=== PATIENT | female | born 1970 | race Caucasian/White ===

== ENCOUNTER 2018-06-28 20:43 | Observation (INO) | payer BC ==
[~2018-06-28] VITALS: Ht 157.5 cm; Wt 65.9 kg
--- NOTE | ~2018-06-28 | EC ---
PATIENT:CHUYITA KATZ DATE OF SERVICE: 06/28/18 SEX: F MEDICAL RECORD: [id number] DATE OF : 72 LOCATION:D.M2 D.211 AGE OF PATIENT: 47 ADMISSION DATE: 06/28/18 REFERRING PHYSICIAN: INTERPRETING PHYSICIAN: MIAN COMER MD ECHOCARDIOGRAM REPORT ECHO CHARGES 4 ECHO COMPLETE Date: 06/29/18 CLINICAL DIAGNOSIS: CP ECHOCARDIOGRAPHIC MEASUREMENTS (adult normal given) AC root (d.<3.7cm) 3.2 cm LV Septum d (<1.2 cm> 1.3 cm Valve Excursion 1.7 cm LV Septum (systole) 2.2 cm Left Atria (s.<4.0cm> 4.0 cm LVPW d(<1.2cm) 0.9 cm RV (d.<2.3cm) 2.6 cm LVPW (sytole) 1.1 cm LV diastole(<5.6CM) 4.5 cm MV E-F(>70mm/sec) cm LV systole 3.4 cm LVOT Diameter 1.5 cm MV exc.(>10mm) cm Est.ejection fraction (50-75%) % DOPPLER: LVIT cm/sec A 58 cm/sec E 66 cm/sec LA cm/sec RVSP 17.9 mmHg LVOT 78 cm/sec AOP1/2T m/s Asc. Ao 117 cm/sec RVOT 67 cm/sec RA cm/sec PA 86 cm/sec AV Gradient Peak 5.5 mmHg AV Mean 2.8 mmHg AV Area 1.1 cm MV Gradient Peak 3.4 mmHg MV Mean 1.3 mmHg MV Area cm COMMENTS: Behavioral Health Tech: Marcie CARDENAS Tool Storage Attendant: 1 Dr. Comer TAPE# PACS Pericardial Effusion N DATE OF SERVICE: 06/29/2018 FINDINGS: 1. Left ventricular chamber size is within normal limits. Left ventricular systolic function is normal. Overall ejection fraction is estimated at 65%. 2. Left atrium, right atrium, and right ventricle chamber sizes are within normal limit. 3. Valvular structures have normal structure and motion. 4. Doppler interrogation reveals no significant valvular insufficiency or stenosis. ECHOCARDIOGRAM REPORT [id number] CHUYITA KATZ 5. No evidence of pericardial effusion or left ventricular thrombus. TRANSINT:[id number] Voice Confirmation ID: [id number] DOCUMENT ID: [id number] MIAN COMER MD CC: [id number] DICTATION DATE: 06/29/18 1408 PROFESSIONAL APPLICATION DESIGNER: 06/29/18 181 ADM IN [facility] [address] [id number]
--- NOTE | ~2018-06-28 | HEMODYNAMI ---
PATIENT:CHUYITA KATZ MEDICAL RECORD: [id number] : 72 LOCATION:[facility] D.2114 ADMISSION DATE: 06/28/18 Generatedon:06/29/201814:39 Patient name: CHUYITA KATZ Patient #: [id number] SSN: DO B: 1970 Date of study: 06/29/2018 Page: Of Hemodynamic Procedure Report Patient Data Patient Demographics Procedure consent was obtained First Name: CHUYITA Gender: Female Last Name: STERLING : 1970 Middle Initial: MORENITA Age: 47 year(s) Patient #: [id number] Race: Unknown Additional ID: [id number] Contact details Address: [address] [place] [address] State: [place] City: [place] Zip code: [address] Past Medical History Allergies Allergen Reaction Date Comments Reported Other allergy 06/29/2018 hydrochlorothiazide Admission Admission Data Admission Date: 06/28/2018 Admission Time: 22:36 Room #: D.2114 Height (in.): 61.81 BSA: 1.67 (m2) Height (cm.): 157 BMI: 26.74 (kg/m2) Weight (lbs.): 145.29 Weight (kg.): 65.9 Lab Results Lab Result Date: 06/29/2018 Lab Result Time: 0:00 Biochemistry Name Units Result Min Max BUN mg/dl 15 --(--*-)-- 7 18 Creatinine mg/dl 0.9 --(-*--)-- 0.6 1.3 CBC Name Units Result Min Max Hemoglobin g/dl 13 -*(----)-- 13.5 17.5 Procedure Procedure Types Cath Procedure Diagnostic Procedure [facility] w/Coronaries FFR/IVUS Intra-Coronary IVUS Initial Sedation Charges Moderate Sedation up to 15 minutes PCI Procedure Coronary Stent Coronary Stent Initial Peripheral Cath Diagnostic Procedure Delivery Technician Peripheral Procedures Edmuj-Kzzamtd-Xbc-Off Procedure Description Procedure Date Procedure Date: 06/29/2018 Procedure Start Time: 14:15 Procedure End Time: 14:39 Procedure Staff Name Function Chan Comer MD Performing Physician Yary Chatman RT Monitor Kauhsik Serrato RN Nurse Moon Alexander RT Scrub Procedure Data Cath Procedure Fluoroscopy Diagnostic fluoroscopy Total fluoroscopy Time: 3.8 time: 3.8 min min Diagnostic fluoroscopy Total fluoroscopy dose: 516 dose: 516 mGy mGy Contrast Material Contrast Material Type Amount (ml) Isovue 300 117 Entry Location Entry Primary Successful Side Size Upsize Upsize Entry Closure Succes sful Closure Location (Fr) 1 (Fr) 2 (Fr) Remarks Device Remarks Femoral Right 5 Fr 6 Fr Exoseal artery Short Estimated blood loss: 10 ml Diagnostic catheters Device Type Used For End Catheter Placement MULTIPACK Pigtail 5 Fr Procedure catheter MULTIPACK JL 4.0 5Fr Procedure catheter MULTIPACK 3DRC 5Fr Procedure catheter Procedure Complications No complications Procedure Medications Medication Administration Route Dosage Oxygen etCO2 Nasal cannula 2 l/min Heparin Flush Bag added to field 2 bags (1000units/500ml NS) 0.9% NaCl I.V. 100 ml/hr Fentanyl I.V. 50 mcg Versed I.V. 1 mg Fentanyl I.V. 50 mcg Versed I.V. 1 mg Heparin Bolus I.V. 4000 units Plavix P.O. 75 mg Hemodynamics Rest BSA: 1.67 (m2) O2 Consumption: Estimated: 165.92 (ml/min) O2 Consumption indexed : Estimated:99.35 (ml/min/m) Heart Rate: 70 (bpm) Pressure Samples Time Site Value (mmHg) Purpose Heart Use Rate(bpm) 14:17 LV 111/9,13 Snapshot 70 Snapshots Pre Cath Intra NCS Post Cath Vital Signs Time Heart Resp SPO2 etCO2 NIBP Rhythm Pain Sedation Rate (ipm) (%) (mmHg) (mmHg) Status Level (bpm) 14:01:07 57 16 95 0 99/56(78) NSR 0 (11) 10(A) , No pain 14:05:13 58 17 95 0 99/57(74) NSR 0 (11) 10(A) , No pain 14:09:24 59 16 97 0 87/44(61) NSR 0 (11) 10(A) , No pain 14:13:26 53 17 98 38.6 100/57(74) NSR 0 (11) 10(A) , No pain 14:18:38 57 17 97 39.4 86/47(73) NSR 0 (11) 9(A) , No pain 14:22:41 55 17 97 38.7 89/51(66) NSR 0 (11) 9(A) , No pain 14:26:49 56 16 97 34.2 88/41(60) NSR 0 (11) 9(A) , No pain 14:30:53 53 17 98 35.6 101/53(80) NSR 0 (11) 9(A) , No pain 14:35:03 56 18 98 36.4 89/43(60) NSR 0 (11) 10(A) , No pain 14:39:10 57 14 98 29.7 83/44(57) NSR 0 (11) 10(A) , No pain Medications Time Medication Route Dose Verified Delivered Reason Notes Effectiveness by by 14:00:32 Oxygen etCO2 2 Chan Faulkner Per physician Nasal l/min Souleymane Serrato RN cannula 14:00:41 Heparin Flush added 2 Chan Faulkner used for Bag to bags Souleymane Serrato RN procedure (1000units/500ml field NS) 14:00:50 0.9% NaCl I.V. 100 Chan Faulkner Per physician ml/hr Souleymane Serrato RN 14:14:52 Fentanyl I.V. 50 Chan Howardy for sedation mcg Souleymane Serrato RN 14:14:59 Versed I.V. 1 mg Chan Faulkner for sedation Souleymane Serrato RN 14:18:11 Fentanyl I.V. 50 Chan Faulkner for sedation mcg Souleymane Serrato RN 14:18:16 Versed I.V. 1 mg Chan Howardy for sedation Souleymane Serrato RN 14:27:39 Heparin Bolus I.V. 4000 Chan Faulkner for units Souleymane Serrato RN anticoagulation 14:33:55 Plavix P.O. 75 mg Chan Faulkner for Souleymane Serrato RN antiplatelet therapy Procedure Log Time Note 13:38:22 Moon Alexander RT(R) sent for patient. Start room use. 13:40:47 Patient Height : 61.81 inches 13:40:53 Patient Weight : 145.29 lbs 13:41:45 Lab Result : BUN 15 mg/dl 13:41:45 Lab Result : Hemoglobin 13 g/dl 13:41:45 Lab Result : Creatinine 0.9 mg/dl 13:42:20 Diagnostic Cath status Elective 13:42:27 Time tracking: Call back (After hours or weekends) 13:42:33 Plan of Care:Hemodynamics will remain stable., Cardiac rhythm will remain stable., Comfort level will be maintained., Respiratory function will remain adequate., Patient/ family verbilizes understanding of procedure., Procedure tolerated without complication., Recovers from procedure without complications.. 13:51:33 Patient received from Med II to CCL 1 Alert and oriented. Tansferred to table in Supine position. 13:51:34 Warm blankets applied, and michelle hugger turned on for patient comfort. 13:51:35 Correct patient and procedure confirmed by team. 13:51:43 Signed procedure consent form obtained from patient. 13:51:46 ECG and BP/O2 sat monitors applied to patient. 13:51:52 H&P Date Dictated: 06/29/2018 Within 30 days and on chart.. 13:51:54 Pre-procedure instructions explained to patient. 13:51:57 Family in patients room. 13:51:59 Patient NPO since Midnight. 13:52:41 Patient allergic to Other allergyhydrochlorothiazide 13:52:50 Is the patient allergic to Iodine/contrast media? No. 13:52:52 Was the patient premedicated? Yes 14:00:01 Vital chart was started 14:00:32 Oxygen 2 l/min etCO2 Nasal cannula was administered by Kaushik Serrato RN; Per physician; 14:00:41 Heparin Flush Bag (1000units/500ml NS) 2 bags added to field was administered by Kaushik Serrato RN; used for procedure; 14:00:50 0.9% NaCl 100 ml/hr I.V. was administered by Kaushik Serrato RN; Per physician; 14:04:05 Is patient on blood thinner?Yes 14:04:09 ACC The patient was administered the following blood thiners within the last 24 hours: ACCPlavix 14:04:11 Patient diabetic? No. 14:04:16 Snore? No 14:04:17 Sleep apnea? No 14:04:23 Dentures? No ? 14:04:27 Patient pain scale 0/10 ?. 14:04:35 IV patent on arrival in left forearm with 0.9% NaCl at [facility]. 14:04:40 Lab results completed and on chart. 14:04:52 Bilateral groins area was prepped with chlora-prep and draped in sterile fashion 14:04:56 Alarms reviewed by R. N. 14:04:57 Sharps counted by scrub and verified by R.N. 14:04:58 Physician paged 14:10:45 Physician arrived 14:10:46 --------ALL STOP TIME OUT------ 14:10:47 Final Timeout: patient, procedure, and site verified with staff and physician. All members of the team are in agreement. 14:10:50 Bilateral groins site verified by team. 14:10:54 Physical assessment completed. ASA score P 2 - A patient with mild systemic disease as per Chan Comer MD. 14:10:58 Sedation plan: IV Moderate Sedation Medication:Versed, Fentanyl 14:14:52 Fentanyl 50 mcg I.V. was administered by Kaushik Serrato RN; for sedation; 14:14:59 Versed 1 mg I.V. was administered by Kaushik Serrato RN; for sedation; 14:15:08 Use device set Femoral Dx 14:15:11 Procedure started. 14:15:11 Full Disclosure recording started 14:15:23 Local anesthetic to right femoral artery with Lidocaine 2% by Chan Comer MD.INITIAL ACCESS ONLY 14:15:38 A 5 Fr sheath was inserted into the Right Femoral artery 14:15:42 ACIST Syringe (59170) opened to sterile field. 14:15:43 Bag Decanter () opened to sterile field. 14:15:44 Medline Cath Pack ([id number]) opened to sterile field. 14:15:45 DIAGNOSTIC WIRE .035 260cm J wire (921973) opened to sterile field. 14:15:46 ACIST Hand Control (45132) opened to sterile field. 14:15:46 ACIST Manifold (20529) opened to sterile field. 14:15:48 DIAGNOSTIC Multipack 5Fr catheter set (FV2415) opened to sterile field. 14:15:48 Tegaderm 4 x 4 (1626W) opened to sterile field. 14:15:50 SHEATH 5FR [place] (ART072) opened to sterile field. 14:16:20 A MULTIPACK Pigtail 5 Fr catheter was advanced over the wire and used for Procedure. 14:18:06 LV hemodynamics recorded. 14:18:11 Fentanyl 50 mcg I.V. was administered by Kaushik Serrato RN; for sedation; 14:18:16 Versed 1 mg I.V. was administered by Kaushik Serrato RN; for sedation; 14:18:17 EF : 60 % 14:18:35 LV angiography performed. 14:18:53 Abdominal Aortagram was performed. 14:18:56 Right leg runoff performed. 14:18:57 Left leg runoff performed. 14:19:05 Catheter removed. 14:21:19 A MULTIPACK JL 4.0 5Fr catheter was advanced over the wire and used for Procedure. 14:21:23 LCA angiography performed. 14:21:26 Catheter removed. 14:21:33 A MULTIPACK 3DRC 5Fr catheter was advanced over the wire and used for Procedure. 14:21:39 RCA angiography performed. 14:21:41 Catheter removed. 14:22:59 Proceeding to intervention. 14:23:07 Sheath upsized to a 6 Fr Short. 14:23:17 6 Fr XBLAD 3.5 guide catheter was inserted over the wire 14:23:23 choice pt ex wire advanced. 14:23:30 Wire advanced across lesion. 14:23:45 IVUS catheter advanced over wire. 14:25:51 IVUS catheter removed over wire. 14:27:39 Heparin Bolus 4000 units I.V. was administered by Kaushik Serrato RN; for anticoagulation; 14:32:24 Place stent Inflation Number: 1 A INTEGRITY RX 2.75 x 14 stent ([id number]) was prepped and advanced across the Mid LAD. The stent was deployed at 13 DONYA for 1:55 (min:sec). 14:32:43 Wire removed. 14:32:44 Guide catheter removed. 14:32:55 Sheath removed intact; hemostasis achieved with Exoseal to the Right Femoral artery. 14:33:08 EXOSEAL 6Fr (EX600) opened to sterile field. 14:33:10 SHEATH 6FR [place] (KZE129) opened to sterile field. 14:33:11 GUIDE 6FR XBLAD 3.5 catheter ([id number]) opened to sterile field. 14:33:12 INFLATOR Brian Alexandre (WN5410) opened to sterile field. 14:33:19 Procedure ended.(Physican Out) 14:33:34 Fluoroscopy time 03.80 minutes. 14:33:37 Fluoroscopy dose: 516 mGy 14:33:37 Flurop Dose total: 516 14:33:41 Contrast amount:Isovue 300 117ml. 14:33:43 Sharps counted by scrub and verified by R.N. 14:33:47 Insertion/operative site no bleeding no hematoma. 14:33:52 Post-op/insertion site Right Femoral artery dressed using a 4 x 4 and Tegaderm. 14:33:55 Plavix 75 mg P.O. was administered by Kaushik Serrato RN; for antiplatelet therapy; 14:36:05 Post right femoral artery:stable 14:36:07 Post Procedure Pulses reassessed and unchanged 14:36:10 Post-procedure physical assessment completed. ASA score P 2 - A patient with mild systemic disease as per Chan Comer MD. 14:36:27 Post procedure rhythm: sinus rhythm 14:36:30 Estimated blood loss: 10 ml 14:36:32 Post procedure instruction explained to patient.Patient verbalizes understanding. 14:38:10 Procedure type changed to Cath procedure, Diagnostic procedure, LHC, LHC w/Coronaries, FFR/IVUS, Intra-Coronary IVUS Initial, Sedation Charges, Moderate Sedation up to 15 minutes, PCI procedure, Coronary Stent, Coronary Stent Initial, Peripheral Cath Diagnostic Procedure, Delivery Technician Peripheral Procedures, Favrp-Xjzbckz-Uob-Off 14:38:11 Procedure and supply charges have been captured, reviewed, submitted and are correct. 14:39:02 Procedure Complication : No complications 14:39:06 Vital chart was stopped 14:39:08 See physician's report for complete and final results. 14:39:10 Report given to Pre/Post Procedure Room. 14:39:15 Patient transfered to Pre/Post Procedure Room with Stretcher. 14:39:18 Procedure ended. 14:39:18 Full Disclosure recording stopped 14:39:20 End room use (Document Last) 14:39:20 End room use (Document Last) 14:39:38 ACC-PCI Only Patient was given prescriptions, or instructed by Chan Comer MD to start/continue the following medications upon discharge: Plavix Intervention Summary Intervention Notes Time ActionType Lesion and Equipment Action# Pressure Duration Attributes Used 14:32:24 Place stent Mid LAD INTEGRITY RX 1 13 01:55 2.75 x 14 stent ([id number]) Device Usage Item Name Manufacture Quantity Catalog Hospital Part Current Minimal Lot# / Number Charge Number Stock Stock Serial# Code ACIST Acist 1 51830 732701 937671 368418 20 Syringe Medical (49151) Systems Inc Bag Decanter Microtek 1 268253 55620 026342 5 () Medical Inc. Medline Cath Medline 1 [id number] 622092 84981 613213 5 Pack ([id number]) DIAGNOSTIC [address] [place] 1 892225 815258 452372 707717 30 WIRE .035 260cm J wire (043701) ACIST Hand Acist 1 88167 223341 628373 468045 5 Control Medical (33831) Systems Inc ACIST Acist 1 44445 125971 035984 138803 5 Manifold Medical (93932) Systems Inc DIAGNOSTIC Cardinal 1 BV8375 310843 72128 788074 30 Multipack Health 5Fr catheter set (CP3252) Tegaderm 4 x 3M 1 1626W 628276 200381 190143 5 4 (1626W) SHEATH 5FR Terumo 1 CWS847 523385 966647 575194 5 [place] (EVI391) MULTIPACK Cardinal 1 926625 5 Pigtail 5 Fr Health catheter MULTIPACK JL Cardinal 1 405383 5 4.0 5Fr Health catheter MULTIPACK Cardinal 1 401648 5 3DRC 5Fr Health catheter INTEGRITY RX Medtronic 1 [id number] 058728 032525 195472 5 [id number] 2.75 x 14 stent ([id number]) EXOSEAL 6Fr Cardinal 1 EX600 792564 436750 905653 10 (EX600) Health SHEATH 6FR Terumo 1 WXI419 100605 413676 971197 40 [place] (PMQ663) GUIDE 6FR Cardinal 1 [id number] 275941 339682 050443 10 XBLAD 3.5 Health catheter ([id number]) INFLATOR TOPSEC 1 QF6686 626903 572702 745753 15 [facility] Coiney BasixComrena ([id number]) Signature Audit [place] Stage Time Signature Unsigned Intra-Procedure 06/29/2018 Yary Chatman 2:39:55 PM RT(R) Signatures Monitor : Yary Chatman Signature : RT Date : Time : [address] [place] [address]
[2018-06-28] MEDS ORDERED: LEXAPRO20 MG PO (20:54)
[2018-06-28] MEDS ORDERED: CLARITIN 10 MG10 MG PO (20:54)
[2018-06-28] MEDS ORDERED: ESTRACE1 MG PO (20:54)
[2018-06-28 21:15] LABS: BASOPHILS 0.3 % (0-2); EOSINOPHILS 1.1 % (0-7); HEMATOCRIT 38.9 % (36.0-48.0); IMMATURE GRANULOCYTES 0.1 % (0-5); LYMPHOCYTES 21.7 % (15-50); MCH 29.8 pg (26.0-34.0); MCHC 33.4 g/dL (31.0-37.0); MCV 89.2 fL (80.0-100.0); MEAN PLATELET VOLUME 10.2 fL (7.4-10.4); MONOCYTES 5.3 % (2-11); NEUTROPHILS 71.5 % (40-80); PLATELET COUNT 219 10x3/uL (130-400); RBC 4.36 10x6/uL (4.00-5.40); RDW 12.9 % (11.5-14.5); WBC 7.6 10x3/uL (4.8-10.8)
[2018-06-28 21:16] LABS: APPEARANCE CLEAR (CLEAR); BILIRUBIN NEGATIVE (NEGATIVE); COLOR STRAW (YELLOW); GLUCOSE NEGATIVE (NEGATIVE); KETONE NEGATIVE (NEGATIVE); NITRITE NEGATIVE (NEGATIVE); PROTEIN NEGATIVE (NEGATIVE); SPECIFIC GRAVITY 1.015 (1.005-1.020); UROBILINOGEN NORMAL (NORMAL)
[2018-06-28 21:30] LABS: ALBUMIN 2.8 g/dL (3.4-5.0); ALKALINE PHOSPHATASE 70 U/L (46-116); ALT (SGPT) 33 U/L (10-68); BILIRUBIN - TOTAL 0.23 mg/dL (0.2-1.3); CALC OSMOLALITY 284 mosm/kg (275-300); CALCIUM 8.4 mg/dL (8.5-10.1); CARBON DIOXIDE 26.6 mmol/L (21.0-32.0); CHLORIDE - SERUM 106 mmol/L (98-107); CREATININE - SERUM 0.9 mg/dL (0.6-1.3); GLUCOSE 111 mg/dL (74-106); POTASSIUM - SERUM 4.3 mmol/L (3.5-5.1); PROTEIN - SERUM 7.1 g/dL (6.4-8.2); SODIUM 142 mmol/L (136-145); UREA NITROGEN 15 mg/dL (7-18); eGFR NON AFRICAN AMERICAN 71 mL/min (90-120)
[2018-06-28 21:42] LABS: CREATINE KINASE 89 UL (21-215); PRO BNP 123 pg/mL (0-125); TROPONIN-I < 0.017 ng/mL (0.000-0.060)
[2018-06-28 22:01] VITALS: BP 139/69
[2018-06-28 22:11] VITALS: BP 131/71
[2018-06-28 22:15] VITALS: BP 131/69
[2018-06-28] MEDS ORDERED: B12 IM (23:06)
[2018-06-28] MEDS ORDERED: FISH OIL 1,0001 CA1 PO (23:08)
[2018-06-28] MEDS ORDERED: CENTRUM SILVER1 EAC3 PO (23:08)
[2018-06-28 23:50] VITALS: BP 118/67
[2018-06-29 00:43] VITALS: BP 118/67; BMI 26.6
[2018-06-29 03:19] LABS: CKMB 0.2 U/L (0.0-3.6); CREATINE KINASE 72 UL (21-215)
[2018-06-29 03:32] LABS: TROPONIN-I < 0.017 ng/mL (0.000-0.060)
[2018-06-29 03:45] VITALS: BP 104/60
[2018-06-29 08:13] VITALS: BP 107/56
[2018-06-29 08:34] VITALS: Ht 157.5 cm; Wt 65.9 kg
[2018-06-29 08:56] LABS: BASOPHILS 0.5 % (0-2); EOSINOPHILS 2.6 % (0-7); HEMATOCRIT 35.7 % (36.0-48.0); HEMOGLOBIN 11.5 g/dL (12-16); IMMATURE GRANULOCYTES 0.3 % (0-5); MCH 29.2 pg (26.0-34.0); MCHC 32.2 g/dL (31.0-37.0); MCV 90.6 fL (80.0-100.0); MEAN PLATELET VOLUME 10.7 fL (7.4-10.4); NEUTROPHILS 55.6 % (40-80); PLATELET COUNT 204 10x3/uL (130-400); RBC 3.94 10x6/uL (4.00-5.40); WBC 6.6 10x3/uL (4.8-10.8)
[2018-06-29 09:00] LABS: CALC OSMOLALITY 283 mosm/kg (275-300); CHLORIDE - SERUM 106 mmol/L (98-107); CREATININE - SERUM 0.8 mg/dL (0.6-1.3); GLUCOSE 90 mg/dL (74-106); POTASSIUM - SERUM 3.9 mmol/L (3.5-5.1); SODIUM 142 mmol/L (136-145); UREA NITROGEN 14 mg/dL (7-18); eGFR NON AFRICAN AMERICAN 82 mL/min (90-120)
[2018-06-29 09:38] LABS: CKMB 0.5 U/L (0.0-3.6); CREATINE KINASE 67 UL (21-215); TROPONIN-I < 0.017 ng/mL (0.000-0.060)
[2018-06-29 11:23] VITALS: BP 94/49
[2018-06-29] MEDS ORDERED: ASPIRIN81 MG PO (15:09)
[2018-06-29] MEDS ORDERED: PLAVIX75 MG PO (15:09)
--- NOTE | 2018-06-29 16:47 | MORECARE ---
CASE MANAGEMENT DISCHARGE SUMMARY PATIENT: CHUYITA KATZ HOPE UNIT: [id number] ADM DATE: 06/28/18 AGE: 47 : 72 SEX: F ROOM/BED: D.2114 AUTHOR: OLIVER CHOWDHURY PHYSICIAN: REFERRING PHYSICIAN: MIAN DAI MD DATE OF SERVICE: 06/29/18 Discharge Plan Patient Name: CHUYITA KATZ Facility: [facility]:[place] : 1970 Planned Disposition: Home Anticipated Discharge Date: 06/29/18 Discharge Date: Expected LOS: 1 Initial Reviewer: [email or web address] Initial Review Date: 06/28/2018 Generated: 06/29/18 5:47 pm Patient Name: CHUYITA KATZ Page 58044 at 1647 All edits/amendments must be made on the electronic document DICTATION DATE: 06/29/181646 DRUM OPERATOR: PERLITA 06/29/181646 RPT#: [id number] DC DATE: STATUS: ADM IN [facility] [address] [place] [address] END OF REPORT
== END 2018-06-29 18:50 | disposition home or self-care (01) ==
LOC: D.ER 20:43 → D.M2 22:36 → OBSVTIME 22:36 → D.M2 06-29 18:50
PROVIDERS: Family Medicine; ADMIT Internal Medicine Interventional Cardiology
DX: I25.10 Atherosclerotic heart disease of native coronary artery without angina pectoris (principal); M79.605 Pain in left leg; M79.604 Pain in right leg; F32.9 Major depressive disorder, single episode, unspecified

== ENCOUNTER 2018-07-03 22:44 | Observation (INO) | payer BC ==
[~2018-07-03] VITALS: Ht 157.5 cm; Wt 74.5 kg
[~2018-07-03 22:44] MED LIST: ASPIRIN81 MG PO; B12 IM; CENTRUM SILVER1 EAC3 PO; CLARITIN 10 MG10 MG PO; ESTRACE1 MG PO; FISH OIL 1,0001 CA1 PO; LEXAPRO20 MG PO; PLAVIX75 MG PO
[2018-07-03 23:38] VITALS: BP 100/54
[2018-07-03 23:39] LABS: APTT 25.6 SECONDS (22.8-39.4); PROTIME 12.7 SECONDS (11.6-15.0)
[2018-07-03 23:44] LABS: ALBUMIN 2.6 g/dL (3.4-5.0); ALKALINE PHOSPHATASE 70 U/L (46-116); ALT (SGPT) 32 U/L (10-68); BILIRUBIN - TOTAL 0.16 mg/dL (0.2-1.3); CALC OSMOLALITY 280 mosm/kg (275-300); CALCIUM 8.7 mg/dL (8.5-10.1); CARBON DIOXIDE 28.9 mmol/L (21.0-32.0); CHLORIDE - SERUM 105 mmol/L (98-107); CREATININE - SERUM 0.8 mg/dL (0.6-1.3); GLUCOSE 96 mg/dL (74-106); POTASSIUM - SERUM 3.6 mmol/L (3.5-5.1); PROTEIN - SERUM 6.9 g/dL (6.4-8.2); SODIUM 140 mmol/L (136-145); UREA NITROGEN 19 mg/dL (7-18); eGFR NON AFRICAN AMERICAN 82 mL/min (90-120)
[2018-07-03 23:46] LABS: BASOPHILS 0.4 % (0-2); EOSINOPHILS 1.8 % (0-7); HEMATOCRIT 38.4 % (36.0-48.0); HEMOGLOBIN 12.8 g/dL (12-16); IMMATURE GRANULOCYTES 0.3 % (0-5); LYMPHOCYTES 20.1 % (15-50); MCH 29.4 pg (26.0-34.0); MCHC 33.3 g/dL (31.0-37.0); MCV 88.3 fL (80.0-100.0); MEAN PLATELET VOLUME 10.6 fL (7.4-10.4); MONOCYTES 8.9 % (2-11); NEUTROPHILS 68.5 % (40-80); PLATELET COUNT 221 10x3/uL (130-400); RBC 4.35 10x6/uL (4.00-5.40); RDW 12.7 % (11.5-14.5); WBC 7.7 10x3/uL (4.8-10.8)
[2018-07-03 23:59] LABS: CKMB 0.9 U/L (0.0-3.6); CREATINE KINASE 75 UL (21-215); MAGNESIUM - SERUM 1.9 mg/dL (1.8-2.4); TROPONIN-I < 0.017 ng/mL (0.000-0.060)
[2018-07-04 01:53] LABS: APPEARANCE CLEAR (CLEAR); BILIRUBIN NEGATIVE (NEGATIVE); COLOR YELLOW (YELLOW); GLUCOSE NEGATIVE (NEGATIVE); KETONE NEGATIVE (NEGATIVE); NITRITE NEGATIVE (NEGATIVE); PROTEIN NEGATIVE (NEGATIVE); SPECIFIC GRAVITY 1.015 (1.005-1.020); UROBILINOGEN NORMAL (NORMAL)
[2018-07-04 01:59] LABS: UDS - AMPHET NEGATIVE QUAL (NEGATIVE); UDS - BARB NEGATIVE QUAL (NEGATIVE); UDS - BENZO POSITIVE QUAL (NEGATIVE); UDS - COCAINE NEGATIVE QUAL (NEGATIVE); UDS - OPIATE POSITIVE QUAL (NEGATIVE); UDS - PCP NEGATIVE QUAL (NEGATIVE); UDS - THC NEGATIVE QUAL (NEGATIVE)
[2018-07-04 04:30] VITALS: BP 101/60; BMI 26.6
[2018-07-04 07:00] VITALS: BP 94/50
[2018-07-04 10:53] LABS: PLT FUNCT.(P2Y12) PLAVIX 146 PRU (194-418)
[2018-07-04 11:00] VITALS: BP 113/63
[2018-07-04 14:02] VITALS: Ht 157.5 cm; Wt 74.5 kg
[2018-07-04 15:00] VITALS: BP 114/68
[2018-07-04 20:25] VITALS: BP 118/69
[2018-07-05 00:30] VITALS: BP 107/61
[2018-07-05 04:45] VITALS: BP 104/57
[2018-07-05 06:27] LABS: BASOPHILS 0.2 % (0-2); EOSINOPHILS 1.9 % (0-7); HEMATOCRIT 37.1 % (36.0-48.0); LYMPHOCYTES 23.8 % (15-50); MCH 29.3 pg (26.0-34.0); MCHC 32.3 g/dL (31.0-37.0); MEAN PLATELET VOLUME 10.4 fL (7.4-10.4); MONOCYTES 6.6 % (2-11); NEUTROPHILS 67.5 % (40-80); PLATELET COUNT 203 10x3/uL (130-400); RBC 4.09 10x6/uL (4.00-5.40); RDW 12.9 % (11.5-14.5); WBC 5.8 10x3/uL (4.8-10.8)
[2018-07-05 06:32] LABS: MCV 90.7 fL (80.0-100.0)
[2018-07-05 06:39] LABS: CALC OSMOLALITY 276 mosm/kg (275-300); CALCIUM 8.1 mg/dL (8.5-10.1); CARBON DIOXIDE 29.4 mmol/L (21.0-32.0); CHLORIDE - SERUM 103 mmol/L (98-107); CREATININE - SERUM 0.8 mg/dL (0.6-1.3); GLUCOSE 90 mg/dL (74-106); POTASSIUM - SERUM 3.8 mmol/L (3.5-5.1); SODIUM 139 mmol/L (136-145); UREA NITROGEN 10 mg/dL (7-18); eGFR NON AFRICAN AMERICAN 82 mL/min (90-120)
[2018-07-05 08:25] VITALS: BP 94/58
[2018-07-05 10:00] LABS: AMYLASE - SERUM 51 U/L (25-115); LIPASE 179 U/L (73-393)
[2018-07-05 11:38] VITALS: BP 90/44
[2018-07-05 16:28] VITALS: BP 96/40
[2018-07-05 21:20] VITALS: BP 122/71
[2018-07-06 00:57] VITALS: BP 115/70
[2018-07-06 05:53] VITALS: BP 106/58
[2018-07-06 07:00] LABS: BASOPHILS 0.2 % (0-2); EOSINOPHILS 2.6 % (0-7); HEMATOCRIT 36.5 % (36.0-48.0); HEMOGLOBIN 11.9 g/dL (12-16); IMMATURE GRANULOCYTES 0.2 % (0-5); MCH 29.3 pg (26.0-34.0); MCHC 32.6 g/dL (31.0-37.0); MCV 89.9 fL (80.0-100.0); MEAN PLATELET VOLUME 10.4 fL (7.4-10.4); MONOCYTES 9.8 % (2-11); NEUTROPHILS 58.2 % (40-80); PLATELET COUNT 216 10x3/uL (130-400); RBC 4.06 10x6/uL (4.00-5.40); RDW 12.6 % (11.5-14.5); WBC 5.8 10x3/uL (4.8-10.8)
[2018-07-06 07:08] LABS: INR 0.9 (0.85-1.17); PROTIME 11.7 SECONDS (11.6-15.0)
[2018-07-06 07:19] LABS: ALBUMIN 2.4 g/dL (3.4-5.0); ALKALINE PHOSPHATASE 93 U/L (46-116); ALT (SGPT) 57 U/L (10-68); BILIRUBIN - TOTAL 0.19 mg/dL (0.2-1.3); CALC OSMOLALITY 273 mosm/kg (275-300); CALCIUM 7.7 mg/dL (8.5-10.1); CARBON DIOXIDE 29.4 mmol/L (21.0-32.0); CHLORIDE - SERUM 103 mmol/L (98-107); CREATININE - SERUM 0.8 mg/dL (0.6-1.3); GLUCOSE 88 mg/dL (74-106); POTASSIUM - SERUM 3.8 mmol/L (3.5-5.1); PROTEIN - SERUM 6.6 g/dL (6.4-8.2); SODIUM 138 mmol/L (136-145); UREA NITROGEN 9 mg/dL (7-18); eGFR NON AFRICAN AMERICAN 82 mL/min (90-120)
[2018-07-06 08:41] VITALS: BP 111/52
[2018-07-06 11:43] VITALS: BP 90/47
[2018-07-06 16:43] VITALS: BP 100/54
[2018-07-06] MEDS ORDERED: LEVSIN/ANASP0.125 MG SL (19:33)
[2018-07-06] MEDS ORDERED: CARAFATE1 G PO (19:34)
[2018-07-06] MEDS ORDERED: SYNTHROID50 MCG PO (19:34)
[2018-07-06] MEDS ORDERED: PROTONIX40 MG PO (19:34)
[2018-07-06 20:56] VITALS: BP 103/68
[2018-07-07 02:02] VITALS: BP 96/50
[2018-07-07 06:06] LABS: BASOPHILS 0.4 % (0-2); EOSINOPHILS 3.9 % (0-7); HEMATOCRIT 35.8 % (36.0-48.0); HEMOGLOBIN 11.7 g/dL (12-16); IMMATURE GRANULOCYTES 0.2 % (0-5); LYMPHOCYTES 33.6 % (15-50); MCH 29.1 pg (26.0-34.0); MCHC 32.7 g/dL (31.0-37.0); MCV 89.1 fL (80.0-100.0); MEAN PLATELET VOLUME 10.4 fL (7.4-10.4); MONOCYTES 8.1 % (2-11); NEUTROPHILS 53.8 % (40-80); PLATELET COUNT 200 10x3/uL (130-400); RBC 4.02 10x6/uL (4.00-5.40); RDW 12.9 % (11.5-14.5); WBC 4.9 10x3/uL (4.8-10.8)
[2018-07-07 06:26] LABS: CALC OSMOLALITY 282 mosm/kg (275-300); CALCIUM 7.8 mg/dL (8.5-10.1); CARBON DIOXIDE 28.9 mmol/L (21.0-32.0); CHLORIDE - SERUM 104 mmol/L (98-107); CREATININE - SERUM 0.8 mg/dL (0.6-1.3); GLUCOSE 129 mg/dL (74-106); POTASSIUM - SERUM 3.6 mmol/L (3.5-5.1); SODIUM 142 mmol/L (136-145); UREA NITROGEN 7 mg/dL (7-18); eGFR NON AFRICAN AMERICAN 82 mL/min (90-120)
[2018-07-07 08:24] VITALS: BP 103/61
[2018-07-07 11:09] VITALS: BP 98/63
--- NOTE | 2018-07-08 09:08 | MORECARE ---
CASE MANAGEMENT DISCHARGE SUMMARY PATIENT: CHUYITA KATZ HOPE UNIT: [id number] ADM DATE: 07/04/18 AGE: 47 : 72 SEX: F ROOM/BED: D.4344 AUTHOR: OLIVER CHOWDHURY PHYSICIAN: REFERRING PHYSICIAN: RAFFI QUIÑONEZ MD DATE OF SERVICE: 07/08/18 Discharge Plan Patient Name: CHUYITA KATZ Facility: [facility]:[place] : 1970 Planned Disposition: Home Anticipated Discharge Date: 07/07/18 Discharge Date: 07/07/2018 Expected LOS: 3 Initial Reviewer: [email or web address] Initial Review Date: 07/08/2018 Generated: 07/08/18 10:08 am Patient Name: CHUYITA KATZ Page 54930 at 0908 All edits/amendments must be made on the electronic document DICTATION DATE: 07/08/18907 FIELD CROP FARM WORKER: DM 07/08/18907 RPT#: [id number] DC DATE:07/07/18 STATUS: DIS IN [facility] [address] [place] [address] END OF REPORT
== END 2018-07-07 12:40 | disposition home or self-care (01) ==
LOC: D.ER 22:44 → D.M2 07-04 02:48 → OBSVTIME 07-04 02:48 → D.M2 07-07 12:40
PROVIDERS: Family Medicine; Internal Medicine Cardiovascular Disease; Internal Medicine Gastroenterology; ADMIT Internal Medicine Nephrology
DX: K22.10 Ulcer of esophagus without bleeding (principal); K29.70 Gastritis, unspecified, without bleeding; Z86.73 Personal history of transient ischemic attack (TIA), and cerebral infarction without residual deficits; I25.110 Atherosclerotic heart disease of native coronary artery with unstable angina pectoris; N17.9 Acute kidney failure, unspecified; I10 Essential (primary) hypertension; Q24.5 Malformation of coronary vessels

== ENCOUNTER 2018-09-10 18:45 | Emergency (ER) | payer BC ==
[~2018-09-10] VITALS: Ht 157.5 cm; Wt 75.0 kg
[~2018-09-10 18:45] MED LIST changes: +CARAFATE1 G PO; +LEVSIN/ANASP0.125 MG SL; +PROTONIX40 MG PO; +SYNTHROID50 MCG PO
[2018-09-10 18:48] VITALS: Ht 157.5 cm; Wt 75.0 kg
[2018-09-10] MEDS ORDERED: BUPROPION HCL150 M1 PO (18:59)
[2018-09-10] MEDS ORDERED: CALTRATE+D3 PL1 EACH PO (19:00)
[2018-09-10] MEDS ORDERED: VITAMIN B-121000 MCG PO (19:01)
[2018-09-10] MEDS ORDERED: ULTRAM50 MG PO (19:02)
[2018-09-10] MEDS ORDERED: ZOFRAN4 MG PO (19:02)
[2018-09-10] MEDS ORDERED: COCONUT OIL (19:03)
[2018-09-10] MEDS ORDERED: OMEGA-3100 MG PO (19:03)
[2018-09-10 19:30] LABS: APPEARANCE CLOUDY (CLEAR); COLOR YELLOW (YELLOW); NITRITE NEGATIVE (NEGATIVE)
[2018-09-10 19:31] LABS: BILIRUBIN 1+ (NEGATIVE); GLUCOSE NEGATIVE (NEGATIVE); KETONE SMALL mg/dL (NEGATIVE); PROTEIN TRACE mg/dL (NEGATIVE); UROBILINOGEN NORMAL (NORMAL)
[2018-09-10 19:37] LABS: BACTERIA MANY /hpf (NONE SEEN); RED CELLS - URINE 0-5 /hpf (0-5); WHITE CELLS - URINE 0-5 /hpf (0-5)
[2018-09-10] MEDS ORDERED: HYDROCODON-ACE1 EAC2 PO (20:59)
[2018-09-10 21:19] VITALS: BP 136/78
== END 2018-09-10 21:20 | disposition home or self-care (01) ==
LOC: D.ER 18:45
PROVIDERS: Family Medicine
DX: M54.5 Low back pain (principal); I25.10 Atherosclerotic heart disease of native coronary artery without angina pectoris; K22.10 Ulcer of esophagus without bleeding

== ENCOUNTER → 2018-11-04 08:08 | Outpatient (CLI) | payer BC ==
[2018-09-10 18:48] VITALS: BMI 30.2
[~2018-11-04 08:08] MED LIST changes: +BUPROPION HCL150 M1 PO; +CALTRATE+D3 PL1 EACH PO; +COCONUT OIL; +HYDROCODON-ACE1 EAC2 PO; +OMEGA-3100 MG PO; +ULTRAM50 MG PO; +VITAMIN B-121000 MCG PO; +ZOFRAN4 MG PO
== END | disposition home or self-care (01) ==
LOC: D.RAD 08:08
PROVIDERS: ATTEND Internal Medicine Gastroenterology
DX: R13.10 Dysphagia, unspecified (principal); R10.13 Epigastric pain; R11.2 Nausea with vomiting, unspecified; R12 Heartburn; R19.7 Diarrhea, unspecified

== ENCOUNTER → 2018-11-06 07:37 | Outpatient (CLI) | payer BC ==
[2018-09-10 18:48] VITALS: BMI 30.2
== END | disposition home or self-care (01) ==
LOC: D.NM 07:37
PROVIDERS: ATTEND Internal Medicine Gastroenterology
DX: R13.10 Dysphagia, unspecified (principal); R10.13 Epigastric pain; R11.2 Nausea with vomiting, unspecified; R12 Heartburn; R19.7 Diarrhea, unspecified

== ENCOUNTER → 2019-03-10 08:32 | Outpatient (CLI) | payer BC ==
[2018-09-10 18:48] VITALS: BMI 30.2
--- NOTE | ~2019-03-10 | ST ---
PATIENT:CHUYITA KATZ MEDICAL RECORD: [id number] SEX: F LOCATION:[facility] ORDER #: ADMISSION DATE: 03/10/19 AGE OF PATIENT: 48 REFERRING PHYSICIAN: INTERPRETING PHYSICIAN: MIAN DAI MD DATE OF SERVICE: 03/10/2019 PROCEDURE: Nuclear stress test. INDICATION: Angina, coronary artery disease, shortness of breath, syncope. The patient was exercised on standard Alfred protocol for 9 minutes 30 seconds achieving greater than 85% max target heart rate response with 27 mCi of sestamibi injected at peak stress, 9 mCi were used previously for rest images. FINDINGS: SPECT imaging Cardiolite was used as myocardial perfusion agent. Gated SPECT reveals preserved ejection fraction at 70% with good wall motioning and thickening and brightening throughout all segments. SPECT imaging: Cardiology was used as myocardial perfusion agent. There is reversible ischemia in the mid anterior, apical anterior, and apical segments. The degree of reversibility is moderate. The amount of myocardium involved is mild to moderate. OVERALL IMPRESSION: 1. This is a mild to intermediate risk nuclear stress test, reversible ischemia anteriorly and apically. 2. Gated SPECT reveals preserved ejection fraction 70%. In this patient with ongoing symptomatology, the current scan does suggest the presence of hemodynamically significant coronary artery disease. TRANSINT:[id number] Voice Confirmation ID: [id number] DOCUMENT ID: [id number] cc: Dr. Jo Ann Ramos, [phone] MIAN DAI MD CC: DR JO ANN RAMOS [phone] DICTATION DATE: 03/16/19 0940 DOCUMENT IMAGE TECHNICIAN: 03/16/19 2329 DEP CLI 03/10/[id number] [place] [address]
[~2019-03-10 08:32] MED LIST changes: +FUROSEMIDE20 MG PO
== END | disposition home or self-care (01) ==
LOC: D.HCCARDIO 08:32
PROVIDERS: ATTEND Internal Medicine Interventional Cardiology
DX: I25.10 Atherosclerotic heart disease of native coronary artery without angina pectoris (principal)

== ENCOUNTER 2019-03-14 14:01 | Observation (INO) | payer BC ==
[~2019-03-14] VITALS: Ht 157.5 cm; Wt 61.4 kg
[2019-03-14] VITALS (9 sets, daily range): BP systolic 91–130; BP diastolic 49–79; Ht 157.5 cm; Wt 61.4 kg
--- NOTE | ~2019-03-14 | HEMODYNAMI ---
PATIENT:CHUYITA KATZ MEDICAL RECORD: [id number] : 72 LOCATION[facility] [address] [facility] [id number] ADMISSION DATE: 03/14/19 Generatedon:03/15/201910:17 Patient name: CHUYITA KATZ Patient #: [id number] SSN: [id number] : 1970 Date of study: 03/15/2019 Page: Of Hemodynamic Procedure Report Patient Data Patient Demographics Procedure consent was obtained First Name: CHUYITA Gender: Female Last Name: STERLING : 1970 [facility] Initial: MORENITA Age: 48 year(s) Patient #: [id number] Race: SSN: [id number] Additional ID: [id number] Contact details [address]: [address] [place] [address] State: [place] City: [place] Zip code: [address] Past Medical History Allergies Allergen Reaction Date Comments Reported Other allergy 06/29/2018 hydrochlorothiazide Other allergy 03/15/2019 HYDROCHLOROTHIAZIDE Admission Admission Data Admission Date: 03/14/2019 Admission Time: 14:01 Room #: D.2121 Insurance Payor: Private health insurance [facility] #: [id number] Height (in.): 62 BSA: 1.62 (m2) Height (cm.): 157.48 BMI: 24.69 (kg/m2) Weight (lbs.): 135 Weight (kg.): 61.23 Lab Results Lab Result Date: 03/15/2019 Lab Result Time: 0:00 Biochemistry Name Units Result Min Max BUN mg/dl 10 --(-*--)-- 7 18 Creatinine mg/dl 1 --(--*-)-- 0.6 1.3 eGFR ml/min 63 *-(----)-- 90 120 NONAFRICAN CBC Name Units Result Min Max Hematocrit % 37.5 *-(----)-- 42 54 Hemoglobin g/dl 12.7 -*(----)-- 13.5 17.5 Procedure Procedure Types Cath Procedure Diagnostic Procedure [facility] w/Coronaries Peripheral Cath Diagnostic Procedure Lead Injection Mold Technician Peripheral Procedures Four Vessel Arteriogram Procedure Description Procedure Date Procedure Date: 03/15/2019 Procedure Start Time: 10:04 Procedure End Time: 10:14 Procedure Staff Name Function Italo Menendez MD Performing Physician Moon Alexander RT Monitor Álvaro Little RT Scrub Kelli Seals RN Nurse Sean Ruby RT Big Data Admin Procedure Data Cath Procedure Fluoroscopy Diagnostic fluoroscopy Total fluoroscopy Time: 2.7 time: 2.7 min min Diagnostic fluoroscopy Total fluoroscopy dose: 280 dose: 280 mGy mGy Contrast Material Contrast Material Type Amount (ml) Isovue 300 98 Entry Location Entry Primary Successful Side Size Upsize Upsize Entry Closure Succes sful Closure Location (Fr) 1 (Fr) 2 (Fr) Remarks Device Remarks Femoral Right 5 Fr Exoseal artery Estimated blood loss: 5 ml Diagnostic catheters Device Type Used For End Catheter Placement MULTIPACK JL 4.0 5Fr Procedure catheter MULTIPACK 3DRC 5Fr Procedure catheter MULTIPACK Pigtail 5 Fr Procedure catheter Procedure Complications No complications Procedure Medications Medication Administration Route Dosage Oxygen etCO2 Nasal cannula 2 l/min Lidocaine 2% added to field 20 Heparin Flush Bag added to field 2 bags (1000units/500ml NS) 0.9% NaCl I.V. 100 ml/hr Versed I.V. 1 mg Fentanyl I.V. 50 mcg Plavix P.O. 75 mg Versed I.V. 1 mg Fentanyl I.V. 50 mcg Hemodynamics Rest BSA: 1.62 (m2) HGB: 12.7 (g/dl) O2 Consumption: Estimated: 150.61 (ml/min) O2 Co nsumption indexed: Estimated:92.97 (ml/min/m) Heart Rate: 54 (bpm) Pressure Samples Time Site Value (mmHg) Purpose Heart Use Rate(bpm) 10:11 LV 121/11,18 Snapshot 49 10:12 AO 114/51(85) Pullback 50 10:12 LV 115/18,24 Pullback 50 Gradients Valve Time Site 1 Site 2 Mean SEP/DFP Peak To Heart Use (mmHg) (sec/min) Peak Rate (mmHg) (bpm) Aortic 10:12 LV AO 2 13 1 50 115/18,24 114/51(85) Calculations Valve P-P Mean Valve Index Valve Source Name Gradient Area Flow (cm2) Aortic 1 2 1 2 Snapshots Pre Cath Intra NCS Post Cath Vital Signs Time Heart Resp SPO2 etCO2 NIBP Rhythm Pain Sedation Rate (ipm) (%) (mmHg) (mmHg) Status Level (bpm) 9:43:45 48 18 100 0 108/61(0) SB 0 (11) 10(A) , No pain 9:59:05 49 19 100 40.6 104/58(72) SB 0 (11) 10(A) , No pain 10:03:17 48 19 100 37.6 114/60(75) SB 0 (11) 9(A) , No pain 10:08:22 49 19 100 1.5 109/57(77) SB 0 (11) 9(A) , No pain 10:12:38 51 18 100 14.3 114/57(84) SB 0 (11) 10(A) , No pain 10:16:58 50 7 100 40.6 103/51(75) SB 0 (11) 10(A) , No pain Medications Time Medication Route Dose Verified Delivered Reason Notes E ffectiveness by by 9:55:53 Plavix P.O. 75 mg Italo Buffie for [facility] Mo Seals RN antiplatelet MD therapy 9:57:51 Oxygen etCO2 2 Itaol Buffie used for Nasal l/min [facility] Mo Seals RN procedure cannula 9:57:58 Lidocaine 2% added 20ml Italo Italo for local to vial [facility] anesthetic field MD RUIZ 9:58:03 Heparin Flush added 2 Italo Italo used for Bag to bags [facility] procedure (1000units/500ml field MD RUIZ NS) 9:58:13 0.9% NaCl I.V. 100 Italo Buffie Per ml/hr [facility] Mo Seals RN physician 10:00:34 Versed I.V. 1 mg Italo Buffie for sedation St Mo Seals RN, MD 10:00:41 Fentanyl I.V. 50 Italo Buffie for sedation mcg [facility] Mo Seals RN, MD 10:08:09 Versed I.V. 1 mg Italo Buffie for sedation St Mo Seals RN, MD 10:08:13 Fentanyl I.V. 50 Italo Rolandoie for sedation mcg [facility] Mo Seals RN, MD Procedure Log Time Note 9:25:29 Sean Ruby RT(R) sent for patient. Start room use. 9:25:31 Procedure Status Urgent Heart Cath (IP). 9:25:32 Time tracking: Regular hours (M-F 7:00 - 5:00) 9:25:35 Plan of Care:Hemodynamics will remain stable., Cardiac rhythm will remain stable., Comfort level will be maintained., Respiratory function will remain adequate., Patient/ family verbilizes understanding of procedure., Procedure tolerated without complication., Recovers from procedure without complications.. 9:25:37 Signed procedure consent form obtained from patient. 9::42 Insurance Payor : Private health insurance 9:27:12 Patient Weight : 135 lbs 9:27:15 Patient Height : 62 inches 9:28:12 Lab Result : BUN 10 mg/dl 9::12 Lab Result : Hemoglobin 12.7 g/dl 9::12 Lab Result : Hematocrit 37.5 % 9::12 Lab Result : Creatinine 1 mg/dl 9:28:12 Lab Result : eGFR NONAFRICAN 63 ml/min 9:28:19 PCI Cath Status : Urgent 9:28:20 Diagnostic Cath Status : Urgent 9:29:08 Patient allergic to Other allergyHYDROCHLOROTHIAZIDE 9:42:53 Patient received from Med II to CCL 1 Alert and oriented. Tansferred to table in Supine position. 9:42:54 Warm blankets applied, and michelle hugger turned on for patient comfort. 9:42:54 Correct patient and procedure confirmed by team. 9:42:54 ECG and BP/O2 sat monitors applied to patient. 9:43:48 Vital chart was stopped 9:51:00 Baseline sample Acquired. 9:51:04 Rhythm: sinus bradycardia 9:51:05 Full Disclosure recording started 9:51:06 Pre-procedure instructions explained to patient. 9:51:06 Pre-op teaching completed and patient verbalized understanding. 9:51:09 Family in patients room. 9:51:10 Patient NPO since Midnight. 9:51:12 Is patient on blood thinner?Yes 9:51:14 ACC The patient was administered the following blood thiners within the last 24 hours: ACCPlavix 9:51:15 Patient diabetic? No. 9:51:17 Patient not . Patient has had hysterectomy. 9:51:19 Previous problem with sedation/anesthesia? No ? 9:51:20 Snore? Yes 9:51:21 Sleep apnea? No 9:51:22 Deviated septum? No 9:51:23 Opens mouth fully? Yes 9:51:24 Sticks out tongue? Yes 9:51:26 Airway obstruction? No ? 9:51:28 Dentures? No ? 9:51:30 Pre procedure: right dorsailis pedis pulse 1+ Palpable, but thready & weak; easily obliterated 9:51:33 Patient pain scale 0/10 ?. 9:53:34 IV patent on arrival in left forearm with 0.9% NaCl at [facility]. 9:53:37 Lab results completed and on chart. 9:53:44 Right groin area was prepped with chlora-prep and draped in sterile fashion 9:53:45 Alarms reviewed by R. N. 9:53:46 Sharps counted by scrub and verified by R.N. 9:53:58 Use device set Femoral Dx 9:53:59 ACIST Syringe (45814) opened to sterile field. 9:53:59 Bag Decanter (2002S) opened to sterile field. 9:54:00 ACIST Hand Control (78210) opened to sterile field. 9:54:00 ACIST Manifold (57652) opened to sterile field. 9:54:02 Tegaderm 4 x 4 (1626W) opened to sterile field. 9:54:03 Medline Cath Pack ([id number]) opened to sterile field. 9:54:04 DIAGNOSTIC Multipack 5Fr catheter set ([id number]) opened to sterile field. 9:54:05 SHEATH 5FR Scarsdale ([id number]) opened to sterile field. 9:54:06 EMERALD Guide Wire (474-829) opened to sterile field. 9:55:53 Plavix 75 mg P.O. was administered by Kelli Seals RN; for antiplatelet therapy; 9:57:39 Vital chart was started 9:57:43 Procedure type changed to Cath procedure, Diagnostic procedure, LHC, LHC w/Coronaries, Peripheral Cath Diagnostic Procedure, Lead Injection Mold Technician Peripheral Procedures, Four Vessel Arteriogram 9:57:51 Oxygen 2 l/min etCO2 Nasal cannula was administered by Kelli Seals RN; used for procedure; 9:57:58 Lidocaine 2% 20ml vial added to field was administered by Italo Menendez MD; for local anesthetic; 9:58:03 Heparin Flush Bag (1000units/500ml NS) 2 bags added to field was administered by Italo Menendez MD; used for procedure; 9:58:13 0.9% NaCl 100 ml/hr I.V. was administered by Kelli Seals RN; Per physician; 9:58:44 --------ALL STOP TIME OUT------ 9:58:45 Final Timeout: patient, procedure, and site verified with staff and physician. All members of the team are in agreement. 9:58:46 Right groin site verified by team. 9:58:50 Fire Safety Assessment: A--An alcohol-based skin anteseptic being used preoperatively., C--Open oxygen or nitrous oxide is being used., D--An ESU, laser, or fiber-optic light is being used. 9:58:52 Physical assessment completed. ASA score P 2 - A patient with mild systemic disease as per Italo Menendez MD. 9:58:56 2) 60-89 Mildly reduced kidney function, and other findings (as for stage 1) point to kidney disease. 9:59:00 Maximum allowable contrast dose (3.7 X eGFR X 0.75)175 ml. 9:59:03 Sedation plan: IV Moderate Sedation Medication:Versed, Fentanyl 10:00:17 Zero performed for pressure channel P1 10:00:34 Versed 1 mg I.V. was administered by Kelli Seals RN; for sedation; 10:00:41 Fentanyl 50 mcg I.V. was administered by Kelli Seals RN; for sedation; 10:04:02 Zero performed for pressure channel P1 10:04:09 Procedure started. 10:04:13 Local anesthetic to right femoral artery with Lidocaine 2% by Italo Menendez MD.INITIAL ACCESS ONLY 10:04:54 A 5 Fr sheath was inserted into the Right Femoral artery 10:05:11 A MULTIPACK JL 4.0 5Fr catheter was advanced over the wire and used for Procedure. 10:06:58 LCA angiography performed. 10:07:00 Catheter removed. 10:07:11 A MULTIPACK 3DRC 5Fr catheter was advanced over the wire and used for Procedure. 10:08:09 Versed 1 mg I.V. was administered by Kelli Seals RN; for sedation; 10:08:10 RCA angiography performed. 10:08:12 ACCDominant side:Left 10:08:13 Fentanyl 50 mcg I.V. was administered by Kelli Seals RN; for sedation; 10:09:29 Right carotid angiography performed. 10:10:45 Left carotid angiography performed. 10:10:51 Catheter removed. 10:10:59 A MULTIPACK Pigtail 5 Fr catheter was advanced over the wire and used for Procedure. 10:11:32 LV gram done using PACE 10:11:35 Injector settings: Ml/sec: 10, Volume: 20, 10:11:54 LV hemodynamics recorded. 10:12:12 EF : 55 % 10:12:15 Catheter removed. 10:12:16 EXOSEAL 5Fr (EX500) opened to sterile field. 10:12:46 Sheath removed intact; hemostasis achieved with Exoseal to the Right Femoral artery. 10:13:05 Procedure ended.(Physican Out) 10:13:15 Fluoroscopy time 02.70 minutes. 10:13:19 Fluoroscopy dose: 280 mGy 10:13:19 Flurop Dose total: 280 10:13:24 Dose Area Product 18238 mGy/cm. 10:13:40 Contrast amount:Isovue 300 98ml. 10:13:42 Maximum allowable dose exceeded? No. 10:13:43 Sharps counted by scrub and verified by R.N. 10:13:46 Post-op/insertion site Right Femoral artery dressed using a 4 x 4 and Tegaderm. 10:13:49 Post-procedure physical assessment completed. ASA score P 2 - A patient with mild systemic disease as per Italo Menendez MD. 10:13:52 Post procedure rhythm: sinus bradycardia 10:13:54 Estimated blood loss: 5 ml 10:14:15 Post procedure instruction explained to patient.Patient verbalizes understanding. 10:14:15 Patient needs reinforcement of post procedure teaching. 10:14:34 Procedure and supply charges have been captured, reviewed, submitted and are correct. 10:14:38 Procedure Complication : No complications 10:14:40 See physician's report for complete and final results. 10:14:42 Report given to Pre/Post Procedure Room. 10:14:44 Patient transfered to Pre/Post Procedure Room with Bed. 10:14:47 Procedure ended. 10:14:47 Full Disclosure recording stopped 10:14:51 End room use (Document Last) 10:17:43 Vital chart was stopped Device Usage Item Name Manufacture Quantity Catalog Hospital Part Current Minimal L ot# / Number Charge Number Stock Stock Serial# Code ACSVEN Acist 1 86002 680432 137223 [id number] 20 Syringe Medical (33972) Systems Inc Bag Microtek 1 2001S 323638 95746 616589 5 Decanter Medical Inc. () ACIST Hand Acist 1 29831 217945 464913 313573 5 Control Medical (76845) Systems Inc ACIST Acist 1 04715 208654 227603 040080 5 Manifold Medical (22811) Systems Inc Tegaderm 4 3M 1 1626W 875831 933009 755835 5 x 4 (1626W) Medline Medline 1 [id number] 569333 97635 264183 5 Cath Pack ([id number]) DIAGNOSTIC Cardinal 1 NV1645 216663 89206 041024 30 Multipack Health 5Fr catheter set (ZB9843) SHEATH 5FR Terumo 1 MLS766 967130 469626 180476 5 Scarsdale (TRE237) EMERALD Cardinal 1 502-455 583978 420722 310847 5 Guide Wire Health (502455) MULTIPACK Cardinal 1 329529 5 JL 4.0 5Fr Health catheter MULTIPACK Cardinal 1 914032 5 3DRC 5Fr Health catheter MULTIPACK Cardinal 1 119313 5 Pigtail 5 Health Fr catheter EXOSEAL 5Fr Cardinal 1 EX500 819828 188803 314707 10 (EX500) Health Signature Audit [place] Stage Time Signature Unsigned Intra-Procedure 03/15/2019 Moon Alexander 10:17:40 AM RT(R) Signatures Performing Physician : Signature : Italo Menendez MD Date : Time : Monitor : Moon Alexander Signature : RT Date : Time : Nurse : Kelli Seals RN Signature : Date : Time : [id number] [place] [address]
[~2019-03-14 14:01] MED LIST changes: -FUROSEMIDE20 MG PO
[2019-03-14 14:26] LABS: BASOPHILS 0.3 % (0-2); EOSINOPHILS 2.2 % (0-7); HEMATOCRIT 37.5 % (36.0-48.0); HEMOGLOBIN 12.7 g/dL (12-16); IMMATURE GRANULOCYTES 0.3 % (0-5); LYMPHOCYTES 21.1 % (15-50); MCH 29.7 pg (26.0-34.0); MCHC 33.9 g/dL (31.0-37.0); MCV 87.6 fL (80.0-100.0); MEAN PLATELET VOLUME 10.2 fL (7.4-10.4); MONOCYTES 8.7 % (2-11); NEUTROPHILS 67.4 % (40-80); RBC 4.28 10x6/uL (4.00-5.40); RDW 13.2 % (11.5-14.5); WBC 7.2 10x3/uL (4.8-10.8)
[2019-03-14 14:37] LABS: PLATELET COUNT 266 10x3/uL (130-400)
--- NOTE | 2019-03-14 14:38 | NUR ---
NTG TAB X 3 GIVEN. NO RELIEF NOTED.
[2019-03-14 14:56] LABS: ALBUMIN 2.7 g/dL (3.4-5.0); ALKALINE PHOSPHATASE 68 U/L (46-116); ALT (SGPT) 23 U/L (10-68); BILIRUBIN - TOTAL 0.21 mg/dL (0.2-1.3); CALC OSMOLALITY 277 mosm/kg (275-300); CALCIUM 8.6 mg/dL (8.5-10.1); CARBON DIOXIDE 32.5 mmol/L (21.0-32.0); CHLORIDE - SERUM 105 mmol/L (98-107); GLUCOSE 107 mg/dL (74-106); POTASSIUM - SERUM 4.3 mmol/L (3.5-5.1); SODIUM 140 mmol/L (136-145); UREA NITROGEN 10 mg/dL (7-18); eGFR NON AFRICAN AMERICAN 63 mL/min (90-120)
[2019-03-14 15:14] LABS: APTT 24.6 SECONDS (22.8-39.4); INR 0.95 (0.85-1.17); PROTIME 12.2 SECONDS (11.6-15.0)
[2019-03-14 15:20] LABS: CREATINE KINASE 78 UL (21-215); MAGNESIUM - SERUM 1.8 mg/dL (1.8-2.4)
[2019-03-14 15:33] LABS: TROPONIN-I < 0.017 ng/mL (0.000-0.060)
--- NOTE | 2019-03-14 16:55 | NUR ---
TRANSFER FROM ER BY W/C. MARYINTED TO ROOM. CALL LIGHT IN REACH. WILL CONT. PLAN OF CARE.
[2019-03-14] MEDS ORDERED: FUROSEMIDE20 MG PO (17:05)
--- NOTE | 2019-03-14 20:08 | NUR ---
INITIAL ROUNDS COMPLETED AT 1900 HRS. PT UP IN R. HAS C/O NAUSEA AT 1910 HRS. ZOFRAN 4MG SIVP GIVEN AT 191 HRS. ASSESSMENT COMPLETED AT THAT TIME. SR PER CM HR 69. ALERT AND ORIENTED TO PERSON, PLACE AND TIME. DE DIOS. O2 2LNC. LUNGS DIMINISHED IN BASES BILAT. DE DIOS. ACITVE BS. PALPABLE PERIPHERAL PULSES. INFORMED NPO AFTER MIDNIGHT AND RATIONALE. STATED UNDERSTANDING. SR UP X1, CALL LIGHT WITHINREACH.
[2019-03-14 21:41] LABS: CKMB 0.7 U/L (0.0-3.6); CREATINE KINASE 55 UL (21-215); TROPONIN-I < 0.017 ng/mL (0.000-0.060)
--- NOTE | 2019-03-14 22:04 | NUR ---
PT WATCHING TV. DENIES ANY DISCOMFORT. CALL LIGHT WITHIN REACH.
--- NOTE | 2019-03-14 22:58 | NUR ---
PT HAS C/O SEVERE ARAUJO AND CP 6/10. NITRO PASTE REMOVED FROM CHEST WALL AND CHEST AREA WASHED. MORPHINE 2MG SIVP GIVEN. DAUGHTER AT BEDSIDE. CALL LIGHT WITHIN REACH.
--- NOTE | 2019-03-14 23:45 | NUR ---
ZOFRAN 4MG SIVO GIVEN FOR C/O NAUSEA. STATES ARAUJO LESS INTENSE. REFUSED NEW NITRO PASTE. DAUGHTER AT BEDSIDE.
--- NOTE | 2019-03-15 02:04 | NUR ---
PT RESTING WITH EYES CLOSED. RESP EVEN AND REGULAR. SR UP X2, CALL LIGHT WITHIN REACH.
[2019-03-15 03:44] LABS: CKMB 0.6 U/L (0.0-3.6); CREATINE KINASE 49 UL (21-215)
[2019-03-15 03:47] LABS: TROPONIN-I < 0.017 ng/mL (0.000-0.060)
[2019-03-15 04:15] VITALS: BP 90/46
--- NOTE | 2019-03-15 04:43 | NUR ---
PT RESTING WITH EYES CLOSED. RESP EVEN AND REGULAR. SR UP X2, CALL LIGHT WITHIN REACH.
--- NOTE | 2019-03-15 05:42 | NUR ---
VSS THROUGHOUT NIGHT. SR/SB PER CM. PT STATED ZOFRAN CONTROLLED NAUSEA AND MORPHINE CONTROLLED PAIN. NEEDS MET; WILL CONTINUE TO MONITOR.
--- NOTE | 2019-03-15 07:29 | NUR ---
AWAKE AND ALERT. TELEMERTY SHOWS SB. 02 AT 2 L/M PER NC. SL TO LEFT AC. DENIES ANY NEEDS. SR UP WITH CALL LIGHT IN REACH. WILL MONITOR
[2019-03-15 08:14] VITALS: BP 105/56
[2019-03-15 10:01] LABS: BASOPHILS 0.3 % (0-2); EOSINOPHILS 1.7 % (0-7); HEMATOCRIT 33.1 % (36.0-48.0); HEMOGLOBIN 10.8 g/dL (12-16); IMMATURE GRANULOCYTES 0.2 % (0-5); LYMPHOCYTES 18.5 % (15-50); MCH 29.3 pg (26.0-34.0); MCHC 32.6 g/dL (31.0-37.0); MEAN PLATELET VOLUME 10.7 fL (7.4-10.4); MONOCYTES 8.6 % (2-11); NEUTROPHILS 70.7 % (40-80); PLATELET COUNT 217 10x3/uL (130-400); RBC 3.69 10x6/uL (4.00-5.40); RDW 13.5 % (11.5-14.5); WBC 5.7 10x3/uL (4.8-10.8)
[2019-03-15 10:04] LABS: MCV 89.7 fL (80.0-100.0)
[2019-03-15 10:06] LABS: CALC OSMOLALITY 287 mosm/kg (275-300); CALCIUM 8.1 mg/dL (8.5-10.1); CARBON DIOXIDE 30.9 mmol/L (21.0-32.0); CHLORIDE - SERUM 108 mmol/L (98-107); CREATININE - SERUM 0.8 mg/dL (0.6-1.3); GLUCOSE 105 mg/dL (74-106); POTASSIUM - SERUM 3.7 mmol/L (3.5-5.1); SODIUM 145 mmol/L (136-145); UREA NITROGEN 11 mg/dL (7-18); eGFR NON AFRICAN AMERICAN 81 mL/min (90-120)
--- NOTE | 2019-03-15 10:30 | NUR ---
PT RECEIVED VIA STRETCHER FROM OPERATIONS TECHNICIAN FOR RECOVERY. PT SLEEPING BUT VERBALLY AROUSABLE. IV PATENT INFUSING VIA L ARM PER ORDERS. PT PLACED ON MONITORS, O2 PLACEED AT 2L/NC. HR SINUS SHIRA RATE 56, BP 118/50, RR 10, SAT 95. R GROIN W 5FR EXOCELE, DRESSING CDI NO BLEEDING OR HEMATOMA NOTED. LEG PINK AND WARM, PEDAL PULSES PALPABLE. CALL LIGHT IN REACH
--- NOTE | 2019-03-15 10:40 | NUR ---
TO CATH RECOVERY POST CATH AND WILL BE DISCHARGED FROM THERE
--- NOTE | 2019-03-15 11:03 | NUR ---
PT STILL SLEEPING COMFORTABLY, R GROIN SOFT, DRESSING CDI NO BLEEDING OR HEMATOMA NOTED. CALL LIGHT IN REACH, VSS.
--- NOTE | 2019-03-15 11:45 | NUR ---
PT STILL DROWSY, BUT VERALLY AROUSABLE. R GROIN SOFT, DRESSING CDI NO BLEEDING OR HEMATOMA NOTED. HOB ELEVATED SLIGHTLY, PT DENIES PAIN OR NEEDS. PO FLUIDS GIVEN. CALL LIGHT IN REACH. VSS
--- NOTE | 2019-03-15 12:15 | NUR ---
DISCHARGE INSTRUCTIONS REVIEWED W PT AND FRIEND, BOTH VERBALIZED UNDERSTANDING. IV REMOVED W CATH INTACT, MONITORS AND O2 REMOVED. R GROIN SOFT, DRESSING CDI NO BLEEDING OR HEMATOMA NOTED. LEG PINK AND WARM, PEDAL PULSES PALPABLE. VSS. 1225 PT UP TO DRESS FOR DISCHARGE
--- NOTE | 2019-03-15 12:40 | NUR ---
PT DISCHARGED VIA WC TO PRIVATE VEHICLE TO DAUGHTER WAITING. PT HAD ALL BELONGINGS AND DISCHARGE INFORMATION.
--- NOTE | 2019-03-16 13:03 | CN ---
PATIENT NAME:CHUYITA KATZ MEDICAL RECORD: [id number] : 72 LOCATION:[facility] ADMIT DATE: ACCOUNT: [id number] CONSULTING PHYSICIAN: FABIANA ROMERO MD REFERRING PHYSICIAN: FABIANA ROMERO MD DATE OF CONSULTATION: 03/15/2019 HISTORY OF PRESENT ILLNESS: A 48-year-old female with no known history of coronary artery disease, status post intervention to the LAD via Dr. Comer in 06/28/2018. At that point in time, she had mild irregularities of the circ and right, has been having over the past week class III angina with chest tightness and pressure with minimal exertion, had rest symptomology. She has also been having amaurosis type symptomatology and chaz syncope at home, does have a history of dyslipidemia, hypothyroidism on replacement. We are asked to see her concerning her cardiovascular status. PAST MEDICAL HISTORY: Includes: 1. History of dyslipidemia. 2. Coronary artery disease. 3. Peripheral vascular disease with early atherosclerotic plaquing via AFRO in May 2018. ALLERGIES: HCTZ. MEDICATIONS: Include Plavix 75 every day, loratadine 10 mg p.o. daily, omega 3, fish oil 300 mg p.o. every day, aspirin 81 every day, Lasix 20 every day, Synthroid 50 mcg every day. SOCIAL HISTORY: Nonsmoker, social drinker. 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 Easily takes care of all her ADLs. No set exercise program. REVIEW OF SYSTEMS: The patient reports easy bruising but reports no swollen glands. The patient reports no fever, no night sweats, no significant weight gain, no significant weight loss. No significant exercise tolerance. The patient reports no dry eyes, no irritation, no vision change. Patient reports no difficulty hearing and no ear pain. Patient reports no frequent nose bleeds or nose and sinus problems. Patient reports on arm pain on exertion. No shortness of breath while lying down. No history of heart murmur. Patient reports no cough, no wheezing or coughing up blood. Patient reports no abdominal pain, no vomiting. Normal appetite. No diarrhea and not vomiting blood. No nausea and no constipation. Patient reports no incontinence. No difficulty urinating. No hematuria. No increased frequency. Patient reports no muscle aches. No weakness, no arthralgias, no back pain. No swelling of the extremities. Patient reports no abnormal mole, no jaundice, no rashes. Reports no loss of consciousness. No weakness and no numbness. No seizures, dizziness, or headaches. The patient reports no depression, no sleep disturbance, feeling safe in a relationship and no alcohol abuse. Patient reports on fatigue. Reports no runny nose or sinus pressure. No itching, no hives, and no frequent sneezing. PHYSICAL EXAMINATION: GENERAL: Pleasant female, appears stated age, in no acute distress. VITAL SIGNS: Blood pressure 105/56, pulse 55 and regular. HEENT: Normocephalic, atraumatic. NECK: No JVD or bruit. CONSULT REPORT [id number] CHUYITA KATZ HEART: Regular. LUNGS: Good air excursion. ABDOMEN: Soft, nontender. EXTREMITIES: Pulses 2+. There is no edema. DIAGNOSTIC DATA: EKG shows nonspecific ST-T changes anteriorly. IMPRESSION: Class III angina well within window of restenosis, anterior T-wave changes with known previous disease. PLAN: For angiography, intervention based on above. TRANSINT:[id number] Voice Confirmation ID: [id number] DOCUMENT ID: [id number] FABIANA ROMERO MD at 1303 CC: [id number] DICTATION DATE: 03/15/19 0958 PRECISION DEVICES INSPECTOR/TESTER: 03/15/19 1153 DEP CLI 03/15/19 [id number] [place] [address]
--- NOTE | 2019-03-16 13:03 | DS ---
PATIENT:CHUYITA KATZ :72 MEDICAL RECORD: [id number] DISCHARGE SUMMARY ADMISSION DATE: 03/14/19 DISCHARGE DATE: 03/15/19 PROBLEM LIST: 1. Class III angina. 2. Syncope with amaurosis visual changes. 3. Intravascular volume depletion. BRIEF HISTORY AND HOSPITAL COURSE: Admitted with no history of coronary artery disease with progressive angina symptomatology with rest symptoms class III/IV on admission. She also reported visual changes and syncope, underwent a 4-vessel and a diagnostic angiography that showed no evidence of re-stenosis, good LV function, no significant carotid artery disease. Labs ordered did show a contraction alkalosis consistent with intravascular volume depletion. Adequate hydration was encouraged. Discharged home in good condition. Continue regular followup. TRANSINT:[id number] Voice Confirmation ID: [id number] DOCUMENT ID: [id number] FABIANA ROMERO MD at 1303 CC: [id number] DICTATION DATE: 03/15/19 1016 LICENSED PLUMBER: 03/15/19 2301 [facility] CLI 03/15/19 [id number] [place] [address]
--- NOTE | 2019-03-16 13:03 | OP ---
PATIENT NAME: CHUYITA KATZ MEDICAL RECORD: [id number] :72 LOCATION:[facility] ADMISSION DATE: SURGEON: FABIANA ROMERO MD DATE OF OPERATION: 03/15/2019 PROCEDURES: Cath plus 4-vessel arteriography, right femoral artery approach. CATHETERS: A 5-Mongolian sheath, 5/4 left and right Judkin's, 5/4 pig. The procedure was well tolerated. The patient was returned to quinteros, sheath removed, AngioSeal device placed. FINDINGS: Left ventriculography in 30-degree PACE view: Normal wall motion, normal systolic function. CORONARY ANATOMY: LEFT MAIN: Left main is free of disease. LAD: The area of previous stenting is widely patent and no evidence of progressive stenosis of king salmon disease. No evidence of restenosis. CIRCUMFLEX: Left dominant system, free of disease. RIGHT CORONARY ARTERY: Nondominant, free of disease. The right common carotid was selectively engaged. It shows a smooth-walled common carotid. Right internal carotid, smooth-walled vessel, free of disease. Right external carotid, smooth-walled vessel, free of disease. The catheter was drawn proximally and the left common carotid was selectively engaged. This showed a smooth-walled vessel, free of disease. Left external carotid was smooth-walled vessel, free of disease. Right internal carotid was smooth-walled vessel, free of disease. IMPRESSION: No evidence of significant carotid vascular disease. TRANSINT:[id number] Voice Confirmation ID: [id number] DOCUMENT ID: [id number] FABIANA ROMERO MD at 1303 CC: [id number] DICTATION DATE: 03/15/19 1017 GROUND SUPPORT EQUIPMENT FITTER: 03/15/19 1158 DEP CLI 03/15/19 [address] [place] [address]
== END 2019-03-15 12:40 | disposition home or self-care (01) ==
LOC: D.M2 14:01 → D.ER 14:01 → D.OPS 14:01 → D.M2 15:50 → OBSVTIME 15:50 → D.OPS 15:54 → D.M2 15:54 → EDSTATUS 15:59 → D.M2 03-15 10:30 → D.CLR 03-15 10:30 → D.M2 03-15 12:40 → D.CLR 03-15 12:40 → D.OPS 03-15 12:40 → D.M2 03-15 12:40
PROVIDERS: Emergency Medicine; ADMIT Internal Medicine Interventional Cardiology; ATTEND Internal Medicine Interventional Cardiology
DX: I20.9 Angina pectoris, unspecified (principal); R55 Syncope and collapse; H54.7 Unspecified visual loss; E86.9 Volume depletion, unspecified